=== PATIENT | female | born 1970 | race Two or more races ===

== ENCOUNTER 2018-03-17 09:49 | Outpatient (CLI) | payer OTHER ==
[~2018-03-17 09:49] MED LIST: ALBUTEROL17 G1
== END 2018-03-17 11:48 | disposition home or self-care (01) ==
LOC: SONOGRAMA 09:49
DX: E04.1 Nontoxic single thyroid nodule (principal); E04.2 Nontoxic multinodular goiter

== ENCOUNTER → 2019-05-04 | Emergency (ER) | payer OTHER | END | disposition left against medical advice (07) | LOC: ER 21:14 | DX: Z53.20 Procedure and treatment not carried out because of patient's decision for unspecified reasons (principal) ==

== ENCOUNTER 2021-08-22 14:02 | Outpatient (CLI) | payer OTHER | END 2021-08-22 14:10 | disposition home or self-care (01) | LOC: SONOGRAMA 14:02 | PROVIDERS: ATTEND Otolaryngology | DX: E04.8 Other specified nontoxic goiter (principal) ==

== ENCOUNTER 2021-08-28 06:00 | Day surgery (SDC) | payer OTHER | END 2021-08-28 15:25 | disposition home or self-care (01) | LOC: CIR.AMB 06:00 | PROVIDERS: ATTEND Otolaryngology | DX: J38.2 Nodules of vocal cords (principal); Z20.822 Contact with and (suspected) exposure to COVID-19 ==

== ENCOUNTER 2024-06-03 16:30 | Emergency (ER) | payer OTHER ==
[~2024-06-03] VITALS: Ht 165.1 cm; Wt 93.9 kg
[2024-06-03 16:45] VITALS: BP 121/82; O2SAT 99
[2024-06-03] MEDS ORDERED: METOPROLOL SUCC25 MG PO (16:45)
[2024-06-03] MEDS ORDERED: FAMOTIDINE40 MG PO (16:45)
[2024-06-03] MEDS ORDERED: ORPHENADRINE CITRATE 30 MG/ML AMPUL IM ONE (17:15)
[2024-06-03] MEDS ORDERED: KETOROLAC TROMETHAMINE 60 MG VIAL IM ONE ×2 (17:15→17:20)
[2024-06-03] MEDS ORDERED: ORPHENADRINE CITRATE 30 MG/ML AMPUL ONE (17:20)
[2024-06-03] MEDS ORDERED: KETO10TA2 PO (20:59)
== END 2024-06-03 21:12 | disposition home or self-care (01) ==
LOC: ER 16:31
DX: S89.82XA Other specified injuries of left lower leg, initial encounter (principal); X58.XXXA Exposure to other specified factors, initial encounter; Y93.89 Activity, other specified; Y92.89 Other specified places as the place of occurrence of the external cause; Y99.9 Unspecified external cause status